=== PATIENT | male | born 1975 | race Caucasian/White ===

== ENCOUNTER 2016-06-25 17:53 | Observation (INO) ==
[2016-06-25 18:33] LABS: Bilirubin,Urine Negative (Negative); Blood,Urine Negative (Negative); Clarity,Urine Clear (Clear); Color,Urine Yellow (Yellow); Glucose,Urine (UA) >=1000 mg/dL (Normal); Ketones,Urine Trace mg/dL (Negative); Leukocyte Esterase,Urine Negative (Negative); Nitrite,Urine Negative (Negative); Protein,Urine 100 mg/dL (Neg-Trace); Specific Gravity,Urine > 1.030 (1.010-1.025); Urobilinogen,Urine Normal (Normal)
[2016-06-25 18:35] LABS: Bacteria,Urine None Seen per hpf (None-Few); Squamous Epithelial Cell,Urine Many per lpf (None-Few); WBC,Urine 0-3 per hpf (0-3)
[2016-06-25 18:54] LABS: Renal Epithelial Cells,Urine Few per hpf (None-Few)
[2016-06-25 18:55] LABS: Hyaline Casts,Urine Few per lpf (None-Few)
[2016-06-25 19:32] LABS: Basophils # 0.1 K/mcL (0.0-0.2); Basophils % 0.5 %; Eosinophils # 0.2 K/mcL (0.0-0.6); Eosinophils % 1.3 %; Hematocrit 47.2 % (37.5-50.1); Hemoglobin 17.8 g/dL (12.9-16.9); Immature Granulocytes % 1.1 % (0-4); Lymphocytes # 4.7 K/mcL (0.6-4.6); Lymphocytes % 39.5 %; Mean Corpuscular Hemoglobin 31.8 pg (28.0-33.3); Mean Corpuscular Volume 84.4 fL (83.0-100.0); Mean Platelet Volume 10.9 fL (9.4-12.4); Monocytes # 0.7 K/mcL (0.0-1.3); Monocytes % 5.6 %; Neutrophils # 6.2 K/mcL (1.6-8.9); Nucleated Red Blood Cells 0.6 /100 WBC (0); Platelet Count 227 K/mcL (140-400); Red Blood Count 5.59 M/mcL (4.19-5.50); Red Cell Distribution Width 14.1 % (11.5-14.5)
[2016-06-25 19:34] LABS: Mean Corpuscular HGB Conc 37.7 g/dL (31.6-35.5)
[2016-06-25] MEDS ORDERED: 0.9 % Sodium Chloride 1,000 ML IVC ONE ×2 (19:49→22:20)
[2016-06-25] MEDS ORDERED: Ipratropium/Albuterol Neb 3 ML IH ONE (20:30)
[2016-06-25] MEDS ORDERED: methylPREDNISolone 125 MG/2 ML VIAL IVP ONE (20:30)
--- NOTE | 2016-06-25 20:30 | Emergency Department Note ---
Disposition Clinical Impression: Dehydration, Hypoxia, Bronchitis COPD (chronic obstructive pulmonary disease) Qualifiers: COPD type: unspecified COPD Qualified Code(s): J44.9 - Chronic obstructive pulmonary disease, unspecified Disposition: Admitted As Inpatient Condition: Good Referrals: NO,PCP [Primary Care Provider] - Forms: Work/School Release, ED Satisfaction Letter Time of Disposition: 22:42 Abdominal Pain HPI - General Chief Complaint: ED Abdominal Pain Stated Complaint: abd pain Time Seen by Provider: 06/25/16 19:34 Source: patient Mode of arrival: ambulatory Limitations: no limitations Nursing Notes Reviewed: Yes Vital Signs Reviewed: Yes - History of Present Illness HPI Narrative: patient presents emergency room with cmplaint of burning in his lower abdomen. he also describes being seen last week for respiratory related issues. He does not feel like he is any better. He feels that his symptoms did not resolve after being treated. denies fevers chills nausea vomiting diarrhea chest pi headache or vision changes. He does have intermittent shortness of breath generalize malaise and lower abdominal burning sensation. Onset (ago): week(s) (1 week) Consistency: constant Pain Severity: moderate Pain Scale: 7 Radiation: none Migration to: no migration Improves with: nothing Worsens with: nothing Context: history of similar episodes Associated symptoms: Reports: fever, chills Treatments prior to arrival: none - Related Data Home Medications Medication Instructions Recorded Confirmed No Known Home Drugs 06/25/16 06/25/16 Allergies Allergy/AdvReac Type Severity Reaction Status Date / Time No Known Allergies Allergy Verified 06/25/16 18:16 All systems ED: reviewed and negative except as stated. Constitutional: Reports: fever, chills Cardiovascular: Reports: dyspnea on exertion, orthopnea. Denies: palpitations Respiratory: Reports: cough, dyspnea, wheezes, sputum production Gastrointestinal: Reports: abdominal pain. Denies: nausea, vomiting, diarrhea Genitourinary: Denies: dysuria Musculoskeletal: Denies: back pain, neck pain Neurological: Denies: headache Abdominal Pain PMH - Past Medical History Medical history: Reports: no medical history Male Surgical History: Reports: orthopedic, other Psychiatric history: Reports: no psych history - Social History Smoking status: Current every day smoker Alcohol use: Reports: rarely Drug use: Reports: none Physical Exam - General Limitations: no limitations General appearance: alert, in no apparent distress - Chest Chest inspection: Present: normal inspection - Respiratory Respiratory exam: Present: respiratory distress, wheezes, accessory muscle use. Absent: stridor - Cardiovascular Cardiovascular exam: Present: normal rhythm, tachycardia - Abdominal Exam Abdominal exam: Present: soft, Non-Tender, normal bowel sounds. Absent: tenderness, distention, guarding, rebound, rigidity, Mcmahan's sign, Rovsing's sign, tenderness at McBurney's Point - Extremities Exam Extremities exam: Present: normal inspection, full ROM. Absent: tenderness - Back Exam Back exam: Present: normal inspection - Neurological Exam Neurological exam: Present: alert, oriented X3, CN II-XII intact, normal gait Course Course Narrative: Patient's and examined the patient seen and examined some arrival. See history of present illness. 41-year-old male presents emergency room for repeat evaluation of increased work of breathing. Patient was seen here last week treated with antibiotics and steroids for home. He is persistently has shortness of breath at home. He is also generalized malaise and fevers. Patient back here today for similar presentation evaluation. Patient appears ill and first initial evaluation. He appears dehydrated as well as febrile. Temperature is been elevated at home according to him about 201. Antibiotics did not change his symptom presentation as well as the steroids. On physical exam head is atraumatic. Pupils are equal round reactive to light. Ocular muscles intact. Mucous membranes are dry. Oropharynx is patent. Trach is midline no meningeal symptoms. Lungs have coarse wheezing bilaterally on inspiration and expiration. No focal consolidation is auscultated at this time. Heart is regular initially tachycardic but stable after evaluation. Abdomen is soft nontender nondistended. Patient describes some burning sensation in lower abdomen there is no reproducible symptoms on exam. No burning with urination and no discharge from his penis at this time. No CVA tenderness. Patient moves all 4 extremities I difficulty. Patient says that he just feels wiped out and has been ill for over a week and a half. Physical exam is concerning for possible failed outpatient treatment along with undiagnosed COPD secondary to his chronic smoking history. Patient otherwise has no other medical conditions I think antibiotics are medications for. Patient had EKG chest x-ray and labs performed here. Breathing treatments ordered along with steroid bolus at this time. During the course to be completed and disposition pending workup. - Reevaluation(s) Reevaluation #1: Heart rate has been stable at 90-95 throughout the course of care. Repeat albuterol inhaler treatments given at this time secondary to increased wheezing after first DuoNeb nebs. Patient has what appears to be clinical COPD exacerbation secondary to smoking and weather changes. Patient has not shown signs of hypoxia but has been 93% on room air throughout the course of care. Patient still feels ill. Patient to have repeat treatment course and disposition determined. Labs are within normal limits chest x-ray does not show any acute pulmonary infiltrate. Time: 20:20 Reevaluation #2: Patient feels better breathing at this time but still feels ill and weak. Influenza swab is negative. Patient was ambulated around the emergency room and his pulse ox dropped to 90% and he felt dizzy at that time. Patient denies any other chest pain or symptoms at this point. Patient is concerning for outpatient treatment COPD exacerbation and hypoxia. Patient undergone the hospital for definitive management of what appears to be viral illness/ infectious etiology/COPD 5. Antibiotics fluid bolus and continue monitoring to be provided. Hospitals paged at this time for admission. Time: 22:28 Reevaluation #3: Patient discussed with the hospitalist Dr. Chambers. We reviewed the patient's presentation symptoms and failure of outpatient management. He will bring the patient in the hospital for further evaluation and management will appears to be undiagnosed COPD with reactive airway disease and poorly controlled bronchitis. Patient stable here now. Food provided for him prior to transfer to the floor. Vital signs of an stable throughout the course of care. Symptoms of uncontrolled breathing treatments and steroids. Continue to monitor as initial prosthesis is completed. First dose and about as given. Time: 00:26 Vital Signs Temperature 98.8 F 06/25/16 18:09 Pulse Rate 107 06/25/16 18:09 Respiratory Rate 18 06/25/16 18:09 Blood Pressure 153/97 06/25/16 18:09 O2 Sat by Pulse Oximetry 96 06/25/16 18:09 Temperature 98.8 F 06/25/16 18:09 Pulse Rate 103 06/25/16 23:43 Respiratory Rate 18 06/25/16 23:43 Blood Pressure 139/90 06/25/16 23:43 O2 Sat by Pulse Oximetry 96 06/25/16 23:43 Oxygen Delivery Oxygen Delivery Room Air Abdominal Pain - MDM Narrative Medical decision making narrative: COPD exacerbation, hypoxia, generalized weakness, - Medical Records Medical records reviewed: Yes I reviewed the patient's medical records. - Lab Data Lab results reviewed: Yes I reviewed the patient's lab results. Result diagrams: 06/25/16 19:10 06/25/16 21:30 Lab Results 06/25/16 06/25/16 06/25/16 Range/Units 18:23 19:10 19:51 WBC 11.9 H (4.3-11.1) K/mcL RBC 5.59 H (4.19-5.50) M/mcL Hgb 17.8 H (12.9-16.9) g/dL Hct 47.2 (37.5-50.1) % MCV 84.4 (83.0-100.0) fL MCH 31.8 (28.0-33.3) pg MCHC 37.7 H (31.6-35.5) g/dL RDW 14.1 (11.5-14.5) % Plt Count 227 (140-400) K/mcL MPV 10.9 (9.4-12.4) fL Immature Gran % 1.1 (0-4) % Seg Neutrophils % 52.0 % Lymphocytes % 39.5 % Monocytes % 5.6 % Eosinophils % 1.3 % Basophils % 0.5 % Neutrophils # 6.2 (1.6-8.9) K/mcL Lymphocytes # 4.7 H (0.6-4.6) K/mcL Monocytes # 0.7 (0.0-1.3) K/mcL Eosinophils # 0.2 (0.0-0.6) K/mcL Basophils # 0.1 (0.0-0.2) K/mcL Nucleated RBCs/100 WBC 0.6 H (0) /100 WBC Immature Plt Fraction 6.0 (1.1-6.1) % Sodium (136-145) mEq/L Potassium (3.5-4.5) mEq/L Chloride (98-109) mEq/L Carbon Dioxide (19-29) mEq/L BUN (8-26) mg/dL Creatinine (0.72-1.25) mg/dL Est GFR ( Amer) (> 60) Est GFR (Non-Af Amer) (> 60) BUN/Creatinine Ratio (6-26) Glucose (70-99) mg/dL Calculated Osmolality (280-300) Calcium (8.6-10.8) mg/dL Total Bilirubin (0.2-1.2) mg/dL Direct Bilirubin (0.0-0.5) mg/dL Indirect Bilirubin (0.0-1.2) mg/dL AST (5-34) Units/L ALT (0-55) Units/L Alkaline Phosphatase (38-126) Units/L Serum Total Protein (6.0-8.3) g/dL Albumin (3.5-5.0) g/dL Globulin (2.4-3.5) g/dL Albumin/Globulin Ratio (1.1-2.2) Amylase (25-125) Units/L Lipase (8-78) Units/L Urine Color Yellow (Yellow) Urine Clarity Clear (Clear) Urine pH 6.0 (5.0-8.0) pH Units Ur Specific [place] > 1.030 H (1.010-1.025) Urine Protein 100 H (Neg-Trace) mg/dL Urine Glucose (UA) >=1000 H (Normal) mg/dL Urine Ketones Trace H (Negative) mg/dL Urine Blood Negative (Negative) Urine Nitrite Negative (Negative) Urine Bilirubin Negative (Negative) Urine Urobilinogen Normal (Normal) mg/dL Ur Leukocyte Esterase Negative (Negative) Urine Microscopic RBC 5-15 H (0-3) per hpf Urine Microscopic WBC 0-3 (0-3) per hpf Ur Squamous Epith Cells Many H (None-Few) per lpf Ur Renal Epithelial Cell Few (None-Few) per hpf Urine Bacteria None Seen (None-Few) per hpf Hyaline Casts Few (None-Few) per lpf Ur Culture Indicated? NO (NO) Specimen Rejected Hemolyzed 06/25/16 Range/Units 21:30 WBC (4.3-11.1) K/mcL RBC (4.19-5.50) M/mcL Hgb (12.9-16.9) g/dL Hct (37.5-50.1) % MCV (83.0-100.0) fL MCH (28.0-33.3) pg MCHC (31.6-35.5) g/dL RDW (11.5-14.5) % Plt Count (140-400) K/mcL MPV (9.4-12.4) fL Immature Gran % (0-4) % Seg Neutrophils % % Lymphocytes % % Monocytes % % Eosinophils % % Basophils % % Neutrophils # (1.6-8.9) K/mcL Lymphocytes # (0.6-4.6) K/mcL Monocytes # (0.0-1.3) K/mcL Eosinophils # (0.0-0.6) K/mcL Basophils # (0.0-0.2) K/mcL Nucleated RBCs/100 WBC (0) /100 WBC Immature Plt Fraction (1.1-6.1) % Sodium 136 (136-145) mEq/L Potassium 5.9 H (3.5-4.5) mEq/L Chloride 106 (98-109) mEq/L Carbon Dioxide 20 (19-29) mEq/L BUN 7 L (8-26) mg/dL Creatinine 0.74 (0.72-1.25) mg/dL Est GFR ( Amer) > 60 (> 60) Est GFR (Non-Af Amer) > 60 (> 60) BUN/Creatinine Ratio 9 (6-26) Glucose 211 H (70-99) mg/dL Calculated Osmolality 286 (280-300) Calcium 7.9 L (8.6-10.8) mg/dL Total Bilirubin 0.2 (0.2-1.2) mg/dL Direct Bilirubin < 0.1 (0.0-0.5) mg/dL Indirect Bilirubin 0.1 (0.0-1.2) mg/dL AST 49 H (5-34) Units/L ALT 24 (0-55) Units/L Alkaline Phosphatase 82 (38-126) Units/L Serum Total Protein 7.2 (6.0-8.3) g/dL Albumin 3.1 L (3.5-5.0) g/dL Globulin 4.1 H (2.4-3.5) g/dL Albumin/Globulin Ratio 0.8 L (1.1-2.2) Amylase 5 L (25-125) Units/L Lipase 30 (8-78) Units/L Urine Color (Yellow) Urine Clarity (Clear) Urine pH (5.0-8.0) pH Units Ur Specific [place] (1.010-1.025) Urine Protein (Neg-Trace) mg/dL Urine Glucose (UA) (Normal) mg/dL Urine Ketones (Negative) mg/dL Urine Blood (Negative) Urine Nitrite (Negative) Urine Bilirubin (Negative) Urine Urobilinogen (Normal) mg/dL Ur Leukocyte Esterase (Negative) Urine Microscopic RBC (0-3) per hpf Urine Microscopic WBC (0-3) per hpf Ur Squamous Epith Cells (None-Few) per lpf Ur Renal Epithelial Cell (None-Few) per hpf Urine Bacteria (None-Few) per hpf Hyaline Casts (None-Few) per lpf Ur Culture Indicated? (NO) Specimen Rejected - Radiology Data Radiology results reviewed: Yes I reviewed the patient's radiology results. Chest x-ray stable for acute pathology - EKG Data EKG attestation: Yes I reviewed and interpreted this EKG. EKG shows normal: sinus rhythm, axis, intervals, QRS complexes, ST-T waves Rate: normal Rhythm: NSR [place]/QRS: normal When compared to previous EKG there are: no significant changes Interpretation: no acute changes, unchanged when compared to prior tracing (date ) (05/14/07) Critical Care Time Critical Care Time: Yes Total Critical Care Time: 35 Attestation: Independent of procedures and medical intervention.
[2016-06-25] MEDS ORDERED: Albuterol 2.5 MG/3 ML NEBULIZER IH ONE (21:08)
--- NOTE | 2016-06-25 21:10 | Emergency Department Note ---
START Narrative - START START: I examined this patient and my medical decision-making was reviewed with the CONFORMAL PAD FORMER/PA/Advanced Practice Nurse/Resident Physician. I agree with the documented findings, disposition and treatment plan as described except to the extent set forth below. ED attending note: Patient seen with emergency medicine resident Dr. Somers. Please see a copy of his note for details of the H&P, evaluation, management and disposition of this patient. We independently had [id number] contact with the patient Briefly: A 11-year-old male treated for "bronchitis" several days ago in the ED. Comes in with abdominal burning and shortness of breath. He is expiratory wheezing at least a pack per day smoker. Chest x-ray shows no acute process per radiology. Patient getting breathing treatments and labs. Disposition pending. Patient stable. Abdomen surgically benign.
[2016-06-25 21:50] LABS: Blood Urea Nitrogen 7 mg/dL (8-26); Carbon Dioxide 20 mEq/L (19-29); Chloride 106 mEq/L (98-109); Potassium 5.9 mEq/L (3.5-4.5); Sodium 136 mEq/L (136-145)
[2016-06-25 21:51] LABS: Alkaline Phosphatase 82 Units/L (38-126); BUN/Creatinine Ratio 9 (6-26); Bilirubin,Direct < 0.1 mg/dL (0.0-0.5); Bilirubin,Indirect 0.1 mg/dL (0.0-1.2); Bilirubin,Total 0.2 mg/dL (0.2-1.2); Calcium 7.9 mg/dL (8.6-10.8); Glucose 211 mg/dL (70-99); Osmolality,Calculated 286 (280-300); eGFR For African Americans > 60 (> 60); eGFR For Non-African Americans > 60 (> 60)
[2016-06-25 21:52] LABS: Alanine Aminotransferase 24 Units/L (0-55); Albumin 3.1 g/dL (3.5-5.0); Albumin/Globulin Ratio 0.8 (1.1-2.2); Amylase 5 Units/L (25-125); Aspartate Amino Transferase 49 Units/L (5-34); Globulin 4.1 g/dL (2.4-3.5); Lipase 30 Units/L (8-78); Total Protein 7.2 g/dL (6.0-8.3)
[2016-06-25] MEDS ORDERED: levoFLOXacin 500 MG TABLET PO ONE (22:19)
[2016-06-26] MEDS ORDERED: Acetaminophen 325 MG TABLET PO PRN (01:45)
[2016-06-26] MEDS ORDERED: *HR* Promethazine 25 MG/ML VIAL IVP PRN (01:45)
[2016-06-26] MEDS ORDERED: *HR* Dextrose 50 % in Water (Syg) 50 ML SYRINGE IVP PRN (01:49)
[2016-06-26] MEDS ORDERED: D5% in Water 1,000 ML IVC PRN (01:49)
[2016-06-26] MEDS ORDERED: Dextrose Gel 15 GM PO PRN ×2 (01:49)
[2016-06-26] MEDS ORDERED: Albuterol 2.5 MG/3 ML NEBULIZER IH PRN (01:52)
[2016-06-26] MEDS ORDERED: Nicotine 21 MG PATCH.TD24 TD PRN (01:58)
--- NOTE | 2016-06-26 02:38 | Internal Med History&Physical ---
<Michelle Zendejas Hortencia - Last Filed: 06/26/16 02:22> Date of Encounter: 06/26/16 Time of Encounter: 02:24 Assessment and Plan (1) COPD (chronic obstructive pulmonary disease) Current visit: Yes Status: Suspected suspected due 1-2ppd x24yr smoking history hypoxia on presentation failed outpt abx treatmtn IV levaquin steriods bronchodilators nicotine patch prn recommend smoking cessation pulm consult, PFT as outpt supportive care Qualifiers: COPD type: unspecified COPD Qualified Code(s): J44.9 - Chronic obstructive pulmonary disease, unspecified (2) Polycythemia Current visit: Yes Status: Acute Hb 17.5/Hct 47.2 MCV 84.4 likely etiology smoking vs dehydration unlikely polycythemia vera or hereditary IVF supplemental O2 prn trend labs (3) Increased blood glucose Current visit: Yes Status: Acute family history suggestive of DM glucose 211 check A1C recheck glucose diabetic diet sliding scale (4) Hyperkalemia Current visit: Yes Status: Acute hemolyzed will recheck K (5) Leukocytosis Current visit: Yes Status: Acute WBC 11.9 abx repeat labs (6) Dehydration Current visit: Yes Status: Acute IVF bolus maintenance fluids (7) Hypoxia Current visit: Yes Status: Acute supplemental O2 prn Internal Medicine - H&P: HPI Chief complaint: SOB Admitted From: Home Plans for Post Hospital Care: Home History of present illness: Mr. Ayala is a 41 year old male with c/o SOB PMHx tobacco abuse and heavy caffeine use. Pt c/o dyspnea on exertion since last week. Pt states he has been getting very SOB with productive cough and wheezing since last tuesday. He came to the ER last tuesday for symptoms and was treated with a Zpack. Pt completed medication with no improvement, but worsening of his symptoms. Increased severity of dyspnea has been causing him to get lightheaded and become hypoxic with short distance walking. He is also starting to have pain and discomfort with deep breaths and coughing. He also states he has been having some intermittent burning stomach irritation. He is not sure if it is related to meals and has not tried anything to improve it. Pt denies fever,chills, hemoptysis, myalgia, N/V/D, change in urinary or bowel habits. Past Med Surg Social Fam HX - Past Medical History Medical history: no medical history Psychiatric history: no psych history - Social History Smoking Status: Current every day smoker Packs per day: 1.5ppd x24yrs Smokeless Tobacco Status: No Alcohol use: rarely Drug use: none Occupational status: employed Current living situation: Home Activity Level: Independent ambulation - Family History Paternal Grandmother Hx Family Cardiac Disorders: No Hx Family Respiratory Disorders: Yes (COPD) Hx Family Cancer: No Hx Family GI Disorders: No Hx Family Genitourinary Disorders: No Hx Family Endocrine Disorder: Yes (DM) Hx Family Musculoskeletal Disorders: No Hx Family Neuromuscular Disorders: No Hx Family Neurologic Disorders: No Hx Family HEENT Disorders: No Hx Family Autoimmune Disorders: No Hx Family Reproductive Disorders: No Hx Family Psychosocial Disorders: No Hx Family Medical Disorders: No Father Hx Family Cardiac Disorders: No Hx Family Respiratory Disorders: No Hx Family Cancer: No Hx Family GI Disorders: No Hx Family Genitourinary Disorders: No Hx Family Endocrine Disorder: Yes (DM) Hx Family Musculoskeletal Disorders: No Hx Family Neuromuscular Disorders: No Hx Family Neurologic Disorders: No Hx Family HEENT Disorders: No Hx Family Autoimmune Disorders: No Hx Family Reproductive Disorders: No Hx Family Psychosocial Disorders: No Hx Family Medical Disorders: No Mother Hx Family Endocrine Disorder: Yes (DM) Daughter Hx Family Endocrine Disorder: Yes (DM) Internal Medicine - H&P: Meds No Known Home Drugs 06/25/16 [History] Allergies No Known Allergies Allergy (Verified 06/25/16 18:16) All Systems PM: A 10-system review of systems was performed and is negative for pertinent findings except as documented above in the HPI. - Constitutional Constitutional: no chills, no fever(s), no night sweats - EENT Eyes: no change in vision, no discharge, no pain, no photophobia - Cardiovascular Cardiovascular ROS IM: no chest pain, no diaphoresis, no dyspnea, no lightheadedness, no palpitations, no syncope - Respiratory Respiratory: cough, dyspnea, dyspnea on exertion, wheezing, pain on inspiration , chest congestion, excessive phlegm production, change in phlegm color, pain with cough, no hemoptysis, no stridor - Gastrointestinal Gastrointestinal: belching, heartburn, no coffee ground emesis, no constipation , no diarrhea, no nausea, no vomiting - Genitourinary Genitourinary ROS male: no dysuria, no hematuria, no penile discharge - Musculoskeletal Musculoskeletal ROS IM: no numbness, no tingling - Integumentary Integumentary IM: no rash, no unusual bruising - Neurological Neurological ROS: dizziness, no confusion, no convulsions, no focal weakness, no numbness, no tingling, no tremor(s) - Constitutional Vitals: Temp Pulse Resp BP Pulse Ox 98.2 F 102 16 159/90 96 06/26/16 01:28 06/26/16 01:28 06/26/16 01:28 06/26/16 01:28 06/26/16 01:28 General appearance: Present: A&O X 3, pleasant, no acute distress, obese, answers questions appropriately - Head Head exam: Present: atraumatic, normocephalic - Eye Eye exam: Present: EOMI, PERRL, conjuntiva pink, sclera anicteric Pupils: Present: PERRL - ENT ENT exam: Present: mucous membranes dry - Neck Neck exam general surgery: Present: supple, trachea midline. Absent: lymphadenopathy - Respiratory Respiratory exam: Present: decreased breath sounds, wheezes. Absent: accessory muscle use, chest wall tenderness, respiratory distress, tachypnea - Expanded Respiratory Exam Location: decreased breath sounds: Left, Right, wheezes: Left, Right, Lower - Cardiovascular Cardiovascular exam: Present: RRR, +S1, +S2. Absent: diastolic murmur, gallop, rubs, systolic murmur - GI/Abdominal GI/Abdominal exam: Present: normal bowel sounds, soft (protuberant), no peritoneal signs. Absent: distended, tenderness - Extremities Exam Extremities exam: Present: warm, radial pulses palpable and symetrical. Absent : calf tenderness, cyanotic, pedal edema - Back Exam Back exam: Absent: CVA tenderness (L), CVA tenderness (R) - Neurological Exam Neurological exam: Present: CN II-XII intact, oriented X3, no focal deficits. Absent: pronater drift, facial droop, speech deficit - Skin Skin exam: Present: diaphoretic. Absent: cyanosis, rash Internal Med - H&P Results - Labs CBC & Chem 7: 06/25/16 19:10 06/25/16 21:30 <Javier Chamebrs - Last Filed: 06/26/16 04:53> Internal Medicine - H&P: HPI History of present illness: Mr. Ayala is a 41 year old male All Systems PM: A 10-system review of systems was performed and is negative for pertinent findings except as documented above in the HPI. - Constitutional Vitals: Temp Pulse Resp BP Pulse Ox 98.2 F 102 16 159/90 96 06/26/16 01:28 06/26/16 01:28 06/26/16 01:28 06/26/16 01:28 06/26/16 01:28 Internal Med - H&P Results - Labs CBC & Chem 7: 06/26/16 03:32 06/25/16 21:30 Labs: Short CBC 06/26/16 Range/Units 03:32 WBC 10.4 (4.3-11.1) K/mcL Hgb 16.3 D (12.9-16.9) g/dL Hct 44.3 (37.5-50.1) % Plt Count 171 (140-400) K/mcL - Attending Attestation I examined this patient and my medical decision-making was reviewed with the OTOLARYNGOLOGY NURSE/PA/Advanced Practice Nurse/Resident Physician. I agree with the documented findings, disposition and treatment plan as described except to the extent set forth below. Agree with Dr. Zendejas, and failed outpatient therapy , continue with systemic steroids and antibiotics. Continue with nebulizer therapy.
[2016-06-26 04:05] LABS: Hematocrit 44.3 % (37.5-50.1); Mean Corpuscular HGB Conc 36.8 g/dL (31.6-35.5); Mean Corpuscular Hemoglobin 30.8 pg (28.0-33.3); Mean Corpuscular Volume 83.7 fL (83.0-100.0); Mean Platelet Volume 10.3 fL (9.4-12.4); Platelet Count 171 K/mcL (140-400); Red Blood Count 5.29 M/mcL (4.19-5.50); Red Cell Distribution Width 12.8 % (11.5-14.5)
[2016-06-26 04:06] LABS: Hemoglobin 16.3 g/dL (12.9-16.9)
[2016-06-26] MEDS: 0.9 % Sodium Chloride 1,000 ML IVC SCH ×3 (04:09→20:44)
[2016-06-26 04:17] LABS: Hemoglobin A1C 8.5 %
[2016-06-26 04:44] LABS: eGFR For African Americans > 60 (> 60); eGFR For Non-African Americans > 60 (> 60)
[2016-06-26] MEDS: Ipratropium/Albuterol Neb 3 ML IH SCH ×6 (04:46→23:00)
[2016-06-26 04:50] LABS: Blood Urea Nitrogen 8 mg/dL (8-26); Carbon Dioxide 20 mEq/L (19-29); Chloride 106 mEq/L (98-109); Potassium 5.4 mEq/L (3.5-4.5); Sodium 134 mEq/L (136-145)
[2016-06-26 04:51] LABS: Calcium 8.2 mg/dL (8.6-10.8); Cholesterol 49 mg/dL (< 200); Glucose 323 mg/dL (70-99); Triglycerides 152 mg/dL (< 150)
[2016-06-26 04:53] LABS: HDL Cholesterol 20 mg/dL (40-59)
[2016-06-26 04:54] LABS: BUN/Creatinine Ratio 12 (6-26); Osmolality,Calculated 347 (280-300)
[2016-06-26 04:55] LABS: LDL Cholesterol,Calculated 2 mg/dL (0-99)
[2016-06-26] MEDS ORDERED: Insulin LISPRO 300 UNITS/3 ML VIAL SQ SCH ×2 (06:00→21:00)
[2016-06-26] MEDS: methylPREDNISolone 125 MG/2 ML VIAL IVP SCH ×3 (06:07→20:44)
[2016-06-26] MEDS: Insulin LISPRO 300 UNITS/3 ML VIAL SQ SCH ×3 (08:28→17:45)
[2016-06-26] MEDS: Pantoprazole 40 MG VIAL IVP SCH (08:29)
[2016-06-26] MEDS ORDERED: Ipratropium/Albuterol Neb 3 ML IH PRN (10:14)
[2016-06-26] MEDS ORDERED: *HR* HYDROcodone/Acet 5/325 mg TABLET PO PRN (10:46)
--- NOTE | 2016-06-26 10:47 | Event Note ---
Date of Encounter: 06/26/16 Time of Encounter: 09:15 Patient seen and examined. On examination, patient is sitting upright in bed conversing with his . He complains of a persistent, nonproductive cough. He states he is much more short of breath than usual and states this is been going on for at least a week or so. Chest x-ray negative. Continue levofloxacin. Urinalysis negative. A1c 8.5% leading to a new diagnosis of diabetes. We will treat him with insulin sliding scale per protocol during this admission and start him on oral diabetes medications upon disposition. environmental educator on board and will see him if he is still here on Tuesday, continuing education of diabetes per nursing and hospitalist staff. Patient stating his , children, and most of his family are also diabetic. He continues to smoke 1-1/2 packs per day but states he is actively trying to quit. He declines nicotine replacement therapy at this time. On examination, aeration is poor. We will increase DuoNeb every 4 hours and add mucolytic's. He is already on steroids. He failed outpatient therapy with [facility]-Abhis[facility]. Hypertension and tachycardia noted, will initiate metoprolol. Patient likely has underlying hypertension however he has not seen a provider in several years. He is requesting for a primary care provider here at [facility]. Mild leukocytosis has resolved. Hyperkalemia trending down however suspect false lab reports given that both of these samples were hemolyzed and likely inaccurate. We will recheck labs in the morning. We will continue to monitor. ITS Impressions Chest X-Ray 06/25/16 19:49 IMPRESSION: No acute cardiopulmonary disease D/ / Ralf Valdovinos MD / Ralf Valdovinos MD Interpreting Provider: Ralf Valdovinos MD
[2016-06-26] MEDS ORDERED: Levofloxacin 500 MG/100 ML 500 MG/100 ML BAG IVPB SCH (22:00)
[2016-06-27] MEDS: Ipratropium/Albuterol Neb 3 ML IH SCH ×3 (04:23→11:08)
[2016-06-27] MEDS: methylPREDNISolone 125 MG/2 ML VIAL IVP SCH (05:34)
[2016-06-27] MEDS: 0.9 % Sodium Chloride 1,000 ML IVC SCH (05:35)
[2016-06-27 07:04] LABS: BUN/Creatinine Ratio 17 (6-26); Blood Urea Nitrogen 13 mg/dL (8-26); Calcium 8.9 mg/dL (8.6-10.8); Carbon Dioxide 13 mEq/L (19-29); Chloride 107 mEq/L (98-109); Glucose 350 mg/dL (70-99); Osmolality,Calculated 294 (280-300); Potassium 5.1 mEq/L (3.5-4.5); Sodium 135 mEq/L (136-145); eGFR For African Americans > 60 (> 60); eGFR For Non-African Americans > 60 (> 60)
[2016-06-27] MEDS: Pantoprazole 40 MG VIAL IVP SCH (08:52)
[2016-06-27] MEDS: Insulin LISPRO 300 UNITS/3 ML VIAL SQ SCH ×2 (08:52→12:21)
[2016-06-27 10:54] VITALS: BP 133/73
--- NOTE | 2016-06-27 11:39 | Discharge Summary ---
Date of Encounter: 06/27/16 Time of Encounter: 11:00 - Discharge Diagnosis (1) COPD (chronic obstructive pulmonary disease) Priority: Primary Status: Suspected Comments: History of heavy tobacco abuse 1.5 packs per day. He did not want to discuss stopping smoking. He denied shortness of breath above his normal day of discharge. He is not on controller medications, will initiate Symbicort, albuterol, and send on prednisone taper and finish Levaquin dose (2) Bronchitis Priority: Primary Status: Acute (3) Newly diagnosed diabetes Priority: Primary Status: Acute Comments: A1c 8.5%. He was started on metformin and education was given. Of note, several family members are also diabetic (4) Dehydration Priority: Primary Status: Resolved (5) Hypoxia Priority: Primary Status: Resolved Comments: Tolerated room air while admitted (6) Polycythemia Priority: Primary Status: Resolved Comments: Resolved with IV fluids, likely secondary to dehydration (7) Hyperkalemia Priority: Primary Status: Acute Comments: Remained stable and trended down during this admission as his glucoses were better controlled (8) Leukocytosis Priority: Primary Status: Resolved - Discharge Medications Prescriptions: Albuterol Sulfate [Albuterol Inhaler] 2 puff IH Q4HR PRN #1 hfa.aer.ad PRN Reason: Shortness Of Breath Budesonide/Formoterol 160/4.5 [Symbicort 160/4.5] 2 puff IH BIDR #1 hfa.aer.ad Guaifenesin [Guaifenesin ER] 1,200 mg PO BID #14 tab.er.12h Levofloxacin [Levaquin] 750 mg PO DAILY #5 tablet Metformin [Glucophage] 500 mg PO BIDWM #60 tablet Metoprolol [Lopressor] 25 mg PO BID #60 tablet PredniSONE 10 mg PO DAILY #41 tablet Home Medications: Albuterol Sulfate [Albuterol Inhaler] 2 puff IH Q4HR PRN #1 hfa.aer.ad 06/27/16 [Rx] Budesonide/Formoterol 160/4.5 [Symbicort 160/4.5] 2 puff IH BIDR #1 hfa.aer.ad 06/27/16 [Rx] Guaifenesin [Guaifenesin ER] 1,200 mg PO BID #14 tab.er.12h 06/27/16 [Rx] Levofloxacin [Levaquin] 750 mg PO DAILY #5 tablet 06/27/16 [Rx] Metformin [Glucophage] 500 mg PO BIDWM #60 tablet 06/27/16 [Rx] Metoprolol [Lopressor] 25 mg PO BID #60 tablet 06/27/16 [Rx] PredniSONE 10 mg PO DAILY #41 tablet 06/27/16 [Rx] Allergies/Adverse Reactions: Allergies No Known Allergies Allergy (Verified 06/25/16 18:16) Date of admission: 06/26/16 00:29 Primary care physician: PCP NO Consults: 06/26/16 01:49 Consult to Legal Director [CONS] Routine Comment: Discharging clinician: Fiorella Roldan Anticipated date of discharge: 06/27/16 - Patient Status Disposition: Home, Self-Care Condition: Fair Functional capacity at discharge: independent ambulation Overall status at discharge: patient is back to baseline - Discharge Instructions Follow Up With: Clinic, Residency [Other] Additional Instructions: Follow-up with your new primary care provider within one to 2 weeks - Diet and Activity Activity: increase activity as tolerated Diet: diabetic diet, low fat, low cholesterol, low salt diet Hospital course: Mr. Ayala is a 41 year old male with past medical history of heavy tobacco use 1.5 packs per day 24 years and heavy caffeine abuse. Patient presented to the emergency department chief complaint dyspnea on exertion 1 week. Patient also endorsing extreme shortness of breath and a productive cough with wheezing. Patient was seen in the emergency department last week prior to presentation and was treated with a Z-Abhishek and discharged. Patient stating he completed this medication without improvement and states his symptoms had worsened prompting his presentation back to the emergency department. Patient stating the severity of his dyspnea has caused him to be lightheaded and to become hypoxic with short distances of walking. Patient also endorsed pain with deep breathing and coughing and he also complained of intermittent burning and stomach irritation. Workup in the emergency department unremarkable except for initial hypertension. Patient was admitted to the hospitalist service for further evaluation and management. Chest x-ray negative. Given his lengthy smoking history, he was treated for COPD exacerbation with suspected new diagnosis of COPD. Of note, patient does not see a primary care provider and is not on any home medications. He was started on metoprolol for his hypertension and tachycardia and his blood pressure was normotensive at day of discharge. He was treated with bronchodilators, steroids, and mucolytic's and his aeration improved. He tolerated room air while admitted. Urinalysis was negative. His glucoses were elevated and an A1c of 8.5% LAD to a new diagnosis of diabetes and the patient was educated and started on metformin. He was also started on controller medications for his suspected COPD with Symbicort and albuterol. Attempted smoking cessation counseling however the patient declined. According to [facility], he has not seen a provider since 2013. He was set up with a new PCP upon discharge and strongly encouraged to keep appointment. He denied shortness of breath above his normal day of discharge though his aeration remained poor which I suspect is consistent with his baseline. He was discharged home in stable condition with close outpatient follow-up highly recommended. ITS Impressions Chest X-Ray 06/25/16 19:49 IMPRESSION: No acute cardiopulmonary disease D/ / Ralf Valdovinos MD / Ralf Valdovinos MD Interpreting Provider: Ralf Valdovinos MD Time spent discussing smoking cessation with patient: 3 to 10 minutes - Time Spent with Patient Total time spent providing and/or coordinating discharge services: - Constitutional Vitals: Temp Pulse Resp BP Pulse Ox 97.8 F 74 17 133/73 97 06/27/16 10:52 06/27/16 10:52 06/27/16 10:52 06/27/16 10:52 06/27/16 10:52 General appearance: Present: A&O X 3, pleasant, no acute distress, obese, answers questions appropriately - Head Head exam: Present: atraumatic, normocephalic - Eye Eye exam: Present: PERRL, conjuntiva pink, sclera anicteric Pupils: Present: PERRL - Neck Neck exam general surgery: Present: supple, trachea midline. Absent: lymphadenopathy - Respiratory Respiratory exam: Present: decreased breath sounds, prolonged expiratory phase, wheezes. Absent: accessory muscle use, rales, respiratory distress, rhonchi - Cardiovascular Cardiovascular exam: Present: RRR, +S1, +S2. Absent: diastolic murmur, gallop, rubs, systolic murmur - GI/Abdominal GI/Abdominal exam: Present: normal bowel sounds, soft, no peritoneal signs. Absent: distended, tenderness - Extremities Exam Extremities exam: Present: warm, radial pulses palpable and symetrical. Absent : calf tenderness, cyanotic, pedal edema - Neurological Exam Neurological exam: Present: alert, CN II-XII intact, normal gait, oriented X3, no focal deficits, strengths equal and symetr throughout. Absent: pronater drift, facial droop, speech deficit - Skin Skin exam: Present: dry, intact, normal color, warm
--- NOTE | 2016-06-27 21:50 | Electrocardiograph Report ---
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
== END 2016-06-27 12:58 | disposition home or self-care (01) ==
LOC: 3BNU 17:53 → EMEROO 17:53 → 3BNU 06-26 00:46
PROVIDERS: ADMIT Internal Medicine; ATTEND Nurse Practitioner Family

== ENCOUNTER 2018-07-10 13:39 | Observation (INO) ==
[2018-07-10] MEDS ORDERED: Aspirin 81 MG TAB.CHEW PO ONE (14:05)
--- NOTE | 2018-07-10 14:10 | Emergency Department Note ---
Disposition Clinical Impression: Chest pain Qualifiers: Chest pain type: unspecified Qualified Code(s): R07.9 - Chest pain, unspecified Disposition: Still a Patient Condition: Good Referrals: NONE,PCP [Primary Care Provider] - Forms: ED Satisfaction Letter Time of Disposition: 15:53 Chest Pain HPI - General Chief Complaint: ED Chest Pain Stated Complaint: CP/SOB Time Seen by Provider: 07/10/18 13:56 Source: patient Limitations: no limitations Vital Signs Reviewed: Yes Nursing Notes Reviewed: Yes - History of Present Illness HPI Narrative: 43-year-old male presents from home with bedside for evaluation of right- sided chest pain. Described as a heaviness. Onset yesterday and intermittent. Last approximate 1 hour before spontaneously resolving. Worse with exertion. Improved with rest. Nonradiating. Associated with dyspnea, diaphoresis, and nausea. Patient also has a cough for the past week and progressive orthopnea such that he now is unable to lay flat without becoming extremely short of breath. PMH: COPD, hypertension, diabetes type 2 Family history: Mother had a ACS of the age of 48. Habits: Currently everyday one pack per day smoker. ROS: Positive: Chest pain, dyspnea, diaphoresis, nausea, orthopnea Negative: Fever, chills, vomiting, palpitations, abdominal pain, diarrhea, constipation, dysuria Severity scale (1-10): 8 - Related Data Previous Rx's Medication Instructions Recorded Albuterol Sulfate [Albuterol 2 puff IH Q4HR PRN #1 hfa.aer.ad 06/27/16 Inhaler] Budesonide/Formoterol 160/4.5 2 puff IH BIDR #1 hfa.aer.ad 06/27/16 [Symbicort 160/4.5] Guaifenesin [Guaifenesin ER] 1,200 mg PO BID #14 tab.er.12h 06/27/16 Levofloxacin [Levaquin] 750 mg PO DAILY #5 tablet 06/27/16 Metoprolol [Lopressor] 25 mg PO BID #60 tablet 06/27/16 metFORMIN [Glucophage] 500 mg PO BIDWM #60 tablet 06/27/16 predniSONE [PredniSONE] 10 mg PO DAILY #41 tablet 06/27/16 HYDROcodone/Acet 5/325 mg [[place] 1 tab PO Q6H PRN #20 tab 11/19/16 5-325 mg] Ondansetron [Zofran] 8 mg PO Q8HR PRN #10 tablet 11/19/16 Allergies Allergy/AdvReac Type Severity Reaction Status Date / Time No Known Allergies Allergy Verified 11/19/16 16:26 All systems ED: reviewed and negative except as stated. Review of Systems: As Per HPI Chest Pain PMH - Past Medical History Medical history: Reports: COPD, diabetes, hyperlipidemia, hypertension Psychiatric history: Reports: no psych history - Social History Smoking Status: Current every day smoker Alcohol use: Reports: rarely Drug use: Reports: none Physical Exam Vital Signs Reviewed General: Patient is alert, oriented, and in no acute distress. Head: atraumatic, normocephalic Eye: normal appearance, PERRL, EOMI, no scleral icterus, no conjunctival injection ENT: mucous membranes moist, normal external ear exam Neck: normal inspection, trachea midline, full ROM Chest: normal inspection, symmetric chest rise Respiratory: Good respiratory effort. Bilateral breath sounds are clear without wheezing, crackles, or rhonchi. Cardiovascular: Regular rate and rhythm. No clicks, rubs, gallops, or murmors. Normal heart sounds. No pedal edema. Bilateral radial pulses 2/4 equal. Abdomen: Bowel sounds present normoactive. Abdomen is soft, nondistended, and n ontender. No guarding or rebound. No organomegaly noted. Musculoskeletal: Spontaneously moving all extremities. Skin: warm, diaphoretic, intact. Neuro: GCS 15. No focal neurologic deficits observed. Psych: Patient's affect is appropriate for situation. - General Limitations: no limitations General appearance: alert, in no apparent distress Course Course Narrative: EKG dated 07/10/2018 at 13:59 interpreted as sinus rhythm with a rate of 87.CA 157, QRS 87, QTC 43.normal axis. Nonspecific ST-T changes. Compared to previous EKG dated 06/25/16 shows no acute ischemic changes. Patient's pain completely resolved with SL nitro x3. Serum hematology is unremarkable. Serum chemistry is unremarkable. Troponin within normal limits. CXR is unremarkable. Given patient's concerning story, risk factors including family history he is agreeable to admission for continued evaluation. Discussed the above with the admitting hospitalist, Dr. Hernandez, who agrees to accept the patient for chest pain. Vital Signs Temperature 98.4 F 07/10/18 13:57 Pulse Rate 87 07/10/18 13:57 Respiratory Rate 16 07/10/18 13:57 Blood Pressure 177/90 07/10/18 13:57 O2 Sat by Pulse Oximetry 97 07/10/18 13:57 Temperature 98.4 F 07/10/18 13:57 Pulse Rate 95 07/10/18 14:35 Respiratory Rate 16 07/10/18 14:35 Blood Pressure 144/75 07/10/18 14:35 O2 Sat by Pulse Oximetry 96 07/10/18 14:35 Oxygen Delivery Oxygen Delivery Room Air Chest Pain - Lab Data Result diagrams: 07/10/18 14:15 07/10/18 14:15 Lab Results 07/10/18 07/10/18 07/10/18 Range/Units 14:05 14:06 14:15 WBC 6.8 (4.3-11.1) K/mcL RBC 5.00 (4.19-5.50) M/mcL Hgb 15.0 (12.9-16.9) g/dL Hct 43.7 (37.5-50.1) % MCV 87.4 (83.0-100.0) fL MCH 30.0 (28.0-33.3) pg MCHC 34.3 (31.6-35.5) g/dL RDW 12.7 (11.5-14.5) % Plt Count 165 (140-400) K/mcL MPV 9.9 (9.4-12.4) fL Immature Gran % 0.3 (0-4) % Seg Neutrophils % 62.1 % Lymphocytes % 23.1 % Monocytes % 12.9 % Eosinophils % 0.9 % Basophils % 0.7 % Neutrophils # 4.3 (1.6-8.9) K/mcL Lymphocytes # 1.6 (0.6-4.6) K/mcL Monocytes # 0.9 (0.0-1.3) K/mcL Eosinophils # 0.1 (0.0-0.6) K/mcL Basophils # 0.1 (0.0-0.2) K/mcL PT 11.0 (9.4-12.1) Seconds INR 1.0 APTT 28.7 (26.0-36.0) Seconds Sodium (136-145) mEq/L Potassium (3.5-5.1) mEq/L Chloride (98-107) mEq/L Carbon Dioxide (23-29) mEq/L BUN (6-20) mg/dL Creatinine (0.70-1.30) mg/dL Est GFR ( Amer) (> 60) Est GFR (Non-Af Amer) (> 60) BUN/Creatinine Ratio (6-26) Glucose (70-105) mg/dL Calculated Osmolality (280-300) Calcium (8.6-10.3) mg/dL Troponin I (< 0.04) ng/mL B-Natriuretic Peptide 12 (Less than 100) pg/mL 07/10/18 Range/Units 14:15 WBC (4.3-11.1) K/mcL RBC (4.19-5.50) M/mcL Hgb (12.9-16.9) g/dL Hct (37.5-50.1) % MCV (83.0-100.0) fL MCH (28.0-33.3) pg MCHC (31.6-35.5) g/dL RDW (11.5-14.5) % Plt Count (140-400) K/mcL MPV (9.4-12.4) fL Immature Gran % (0-4) % Seg Neutrophils % % Lymphocytes % % Monocytes % % Eosinophils % % Basophils % % Neutrophils # (1.6-8.9) K/mcL Lymphocytes # (0.6-4.6) K/mcL Monocytes # (0.0-1.3) K/mcL Eosinophils # (0.0-0.6) K/mcL Basophils # (0.0-0.2) K/mcL PT (9.4-12.1) Seconds INR APTT (26.0-36.0) Seconds Sodium 137 (136-145) mEq/L Potassium 3.7 (3.5-5.1) mEq/L Chloride 104 (98-107) mEq/L Carbon Dioxide 25 (23-29) mEq/L BUN 7 (6-20) mg/dL Creatinine 0.63 L (0.70-1.30) mg/dL Est GFR ( Amer) > 60 (> 60) Est GFR (Non-Af Amer) > 60 (> 60) BUN/Creatinine Ratio 11 (6-26) Glucose 235 H (70-105) mg/dL Calculated Osmolality 290 (280-300) Calcium 8.6 (8.6-10.3) mg/dL Troponin I < 0.03 (< 0.04) ng/mL B-Natriuretic Peptide (Less than 100) pg/mL Heart Score - Score History: Highly Suspicious EKG: Non Specific repolarisation Disturbance Age: Less than 45 Risk Factors: Equal/Greater than 3 risk factor or history of atherosclerotic disease Troponin: Less than normal limit HEART Score Total: 5
--- NOTE | 2018-07-10 14:12 | Emergency Department Note ---
Disposition Clinical Impression: Chest pain Qualifiers: Chest pain type: unspecified Qualified Code(s): R07.9 - Chest pain, unspecified Disposition: Still a Patient Forms: ED Satisfaction Letter General Adult HPI - General Chief complaint: ED Chest Pain Stated complaint: CP/SOB Time Seen by Provider: 07/10/18 13:56 Source: patient Limitations: no limitations Nursing Notes Reviewed: Yes Vital Signs Reviewed: Yes - History of Present Illness HPI Narrative: ED attending attestation note: I examined this patient and my medical decision-making was reviewed with the [facility] medicine resident LOBO BOWMAN agree with the documented findings, disposition and treatment plan as described except to the extent set forth below. Briefly: 43-year-old male HEART score 5. Presents with chest pain shortness of breath. Physical examination is benign afebrile with stable vital signs. Patient can EKG troponin chest x-ray and screening labs. Admission will be suggested have "decision-making. Disposition pending. Pain Scale: 8 - Related Data Previous Rx's Medication Instructions Recorded Albuterol Sulfate [Albuterol 2 puff IH Q4HR PRN #1 hfa.aer.ad 06/27/16 Inhaler] Budesonide/Formoterol 160/4.5 2 puff IH BIDR #1 hfa.aer.ad 06/27/16 [Symbicort 160/4.5] Guaifenesin [Guaifenesin ER] 1,200 mg PO BID #14 tab.er.12h 06/27/16 Levofloxacin [Levaquin] 750 mg PO DAILY #5 tablet 06/27/16 Metoprolol [Lopressor] 25 mg PO BID #60 tablet 06/27/16 metFORMIN [Glucophage] 500 mg PO BIDWM #60 tablet 06/27/16 predniSONE [PredniSONE] 10 mg PO DAILY #41 tablet 06/27/16 HYDROcodone/Acet 5/325 mg [[place] 1 tab PO Q6H PRN #20 tab 11/19/16 5-325 mg] Ondansetron [Zofran] 8 mg PO Q8HR PRN #10 tablet 11/19/16 Allergies Allergy/AdvReac Type Severity Reaction Status Date / Time No Known Allergies Allergy Verified 11/19/16 16:26 Past Medical History - Past Medical History Medical history: Reports: COPD, diabetes, hyperlipidemia, hypertension Psychiatric history: Reports: no psych history - Social History Smoking Status: Current every day smoker Smokeless Tobacco Status: No Alcohol use: Reports: rarely Drug use: Reports: none Physical Exam - General Limitations: no limitations General appearance: alert, in no apparent distress Course Vital Signs Temperature 98.4 F 07/10/18 13:57 Pulse Rate 87 07/10/18 13:57 Respiratory Rate 16 07/10/18 13:57 Blood Pressure 177/90 07/10/18 13:57 O2 Sat by Pulse Oximetry 97 07/10/18 13:57 Temperature 98.4 F 07/10/18 13:57 Pulse Rate 87 07/10/18 13:57 Respiratory Rate 16 07/10/18 13:57 Blood Pressure 177/90 07/10/18 13:57 O2 Sat by Pulse Oximetry 96 07/10/18 14:09 Oxygen Delivery Oxygen Delivery Room Air
[2018-07-10] MEDS: Nitroglycerin 0.4 MG TAB.SUBL SL PRN ×3 (14:22→14:32)
[2018-07-10 14:45] LABS: Basophils # 0.1 K/mcL (0.0-0.2); Basophils % 0.7 %; Eosinophils # 0.1 K/mcL (0.0-0.6); Eosinophils % 0.9 %; Hematocrit 43.7 % (37.5-50.1); Immature Granulocytes % 0.3 % (0-4); Lymphocytes # 1.6 K/mcL (0.6-4.6); Lymphocytes % 23.1 %; Mean Corpuscular HGB Conc 34.3 g/dL (31.6-35.5); Mean Corpuscular Volume 87.4 fL (83.0-100.0); Mean Platelet Volume 9.9 fL (9.4-12.4); Monocytes # 0.9 K/mcL (0.0-1.3); Monocytes % 12.9 %; Neutrophils # 4.3 K/mcL (1.6-8.9); Platelet Count 165 K/mcL (140-400); Red Cell Distribution Width 12.7 % (11.5-14.5); Segmented Neutrophils % 62.1 %
[2018-07-10 14:52] LABS: Activated Partial Thrombo Time 28.7 Seconds (26.0-36.0)
[2018-07-10 15:13] LABS: BUN/Creatinine Ratio 11 (6-26); Blood Urea Nitrogen 7 mg/dL (6-20); Calcium 8.6 mg/dL (8.6-10.3); Carbon Dioxide 25 mEq/L (23-29); Chloride 104 mEq/L (98-107); Glucose 235 mg/dL (70-105); Osmolality,Calculated 290 (280-300); Potassium 3.7 mEq/L (3.5-5.1); Sodium 137 mEq/L (136-145); Troponin I < 0.03 ng/mL (< 0.04); eGFR For Non-African Americans > 60 (> 60)
[2018-07-10] MEDS ORDERED: traMADol 50 MG TABLET PO PRN (16:08)
[2018-07-10] MEDS ORDERED: Acetaminophen 325 MG TABLET PO PRN (16:08)
[2018-07-10] MEDS ORDERED: Naloxone 0.4 MG/ML INJ IVP PRN (16:08)
[2018-07-10] MEDS ORDERED: *HR* Promethazine 25 MG/ML VIAL IVP PRN (16:08)
[2018-07-10] MEDS ORDERED: Mag Hydrox/Al Hydrox/Simeth 30 ML UDC PO PRN (16:08)
[2018-07-10] MEDS ORDERED: Ondansetron 4 MG/2 ML VIAL IVP PRN (16:08)
[2018-07-10] MEDS ORDERED: MOM Conc 10 ML UD.LIQ PO PRN (16:08)
[2018-07-10] MEDS ORDERED: Dextrose Gel 15 GM/37.5 ML TUBE PO PRN ×2 (16:11)
[2018-07-10] MEDS ORDERED: D5% in Water 1,000 ML IVC PRN (16:11)
[2018-07-10] MEDS ORDERED: *HR* Dextrose 50 % in Water (Syg) 50 ML SYRINGE IVP PRN (16:11)
--- NOTE | 2018-07-10 16:18 | Internal Med History&Physical ---
Date of Encounter: 07/10/18 Time of Encounter: 16:16 Internal Medicine - H&P: HPI Admitted From: Home Plans for Post Hospital Care: Home History of present illness: Mr. Ayala is a 43 year old male with past medical history of hypertension, hyperlipidemia, diabetes, COPD, current smoker, and obesity presented with acute onset of right-sided chest pain. The patient was started yesterday, was described by patient as pressure-like, no radiation, 5-6 out of 10, relieved by rest. Patient was seen at the ED today, he received 1 dose of nitroglycerin and aspirin, which relieved his chest pressure. Patient denies prior history of CAD, he never underwent any cardiac workup. He denies any fever, chills, night sweats, cough, pleuritic chest pain, or palpitation. While at the ED, patient vital signs were stable, labs were unremarkable except elevated blood glucose. EKG was showing normal sinus rhythm without acute ST-T change. Chest x-ray was unremarkable. Given his severe risk factors, patient is admitted for further evaluation. CODE STATUS discussed with patient and family, they wish full code. Past Med Surg Social Fam HX - Past Medical History Medical history: COPD, diabetes, hyperlipidemia, hypertension Psychiatric history: no psych history - Past Surgical History Additional surgical history: right hand - Social History Smoking Status: Current every day smoker Smokeless Tobacco Status: No Alcohol use: rarely Drug use: none - Family History Paternal Grandmother Hx Family Cardiac Disorders: No Hx Family Respiratory Disorders: Yes (COPD) Hx Family Cancer: No Hx Family GI Disorders: No Hx Family Endocrine Disorder: Yes (DM) Hx Family Neuromuscular Disorders: No Hx Family Neurologic Disorders: No Hx Family HEENT Disorders: No Hx Family Autoimmune Disorders: No Father Hx Family Cardiac Disorders: No Hx Family Respiratory Disorders: No Hx Family Cancer: No Hx Family GI Disorders: No Hx Family Endocrine Disorder: Yes (DM) Hx Family Neuromuscular Disorders: No Hx Family Neurologic Disorders: No Hx Family HEENT Disorders: No Hx Family Autoimmune Disorders: No Mother Hx Family Endocrine Disorder: Yes (DM) Daughter Hx Family Endocrine Disorder: Yes (DM) Internal Medicine - H&P: Meds Albuterol Sulfate [Albuterol Inhaler] 2 puff IH Q4HR PRN #1 hfa.aer.ad 06/27/16 [Rx] Budesonide/Formoterol 160/4.5 [Symbicort 160/4.5] 2 puff IH BIDR #1 hfa.aer.ad 06/27/16 [Rx] Metoprolol [Lopressor] 25 mg PO BID #60 tablet 06/27/16 [Rx] metFORMIN [Glucophage] 500 mg PO BIDWM #60 tablet 06/27/16 [Rx] Allergy/AdvReac Type Severity Reaction Status Date / Time No Known Allergies Allergy Verified 11/19/16 16:26 All Systems PM: A 10-system review of systems was performed and is negative for pertinent findings except as documented above in the HPI. Review of systems: REVIEW OF SYSTEMS: CONSTITUTIONAL: No weight loss, fever, chills, weakness or fatigue. HEENT: Eyes: No visual loss, blurred vision, double vision or yellow sclerae. Ears, Nose, Throat: No hearing loss, sneezing, congestion, runny nose or sore throat. SKIN: No rash or itching. CARDIOVASCULAR: see HPI.. RESPIRATORY: No shortness of breath, cough or sputum. GASTROINTESTINAL: No anorexia, nausea, vomiting or diarrhea. No abdominal pain or blood. GENITOURINARY: No dysuria, urgency, or frequency. NEUROLOGICAL: No headache, dizziness, syncope, paralysis, ataxia, numbness or tingling in the extremities. No change in bowel or bladder control. MUSCULOSKELETAL: No muscle, back pain, joint pain or stiffness. HEMATOLOGIC: No anemia, bleeding or bruising. LYMPHATICS: No enlarged nodes. No history of splenectomy. PSYCHIATRIC: No history of depression or anxiety. ENDOCRINOLOGIC: No reports of sweating, cold or heat intolerance. No polyuria or polydipsia. - Constitutional Vitals: Temp Pulse Resp BP Pulse Ox 98.4 F 83 18 128/67 96 07/10/18 13:57 07/10/18 16:03 07/10/18 16:03 07/10/18 16:03 07/10/18 16:03 General appearance: Present: A&O X 3 Exam: PHYSICAL EXAMINATION: GENERAL APPEARANCE: The patient is alert, oriented and in no acute distress. HEENT: Head is normocephalic. The sinuses are nontender. Pupils are equal and reactive. The nares are patent. Oropharynx clear without lesions. NECK: Supple without lymphadenopathy. HEART: Regular rate and rhythm. LUNGS: No crackles or wheezes are heard. ABDOMEN: Soft, nontender, nondistended with good bowel sounds heard. Inguinal area is normal. EXTREMITIES: Without cyanosis, clubbing or edema. NEUROLOGICAL: Gross nonfocal. SKIN: Warm and dry without any rash. Internal Med - H&P Results - Labs CBC & Chem 7: 07/10/18 14:15 07/10/18 14:15 Labs: Short CBC 07/10/18 Range/Units 14:15 WBC 6.8 (4.3-11.1) K/mcL Hgb 15.0 (12.9-16.9) g/dL Hct 43.7 (37.5-50.1) % Plt Count 165 (140-400) K/mcL Neutrophils # 4.3 (1.6-8.9) K/mcL BMP 07/10/18 14:15 Sodium 137 Potassium 3.7 Chloride 104 Carbon Dioxide 25 BUN 7 Creatinine 0.63 L Glucose 235 H Calcium 8.6 Cardiac Enzymes 07/10/18 Range/Units 14:15 Troponin I < 0.03 (< 0.04) ng/mL - Impressions ITS Impressions Chest X-Ray 07/10/18 14:05 IMPRESSION: No acute cardiopulmonary process radiographically. D/ / Yonny Segura MD / Yonny Segura MD Interpreting Provider: Yonny Segura MD - Assessment and Plan (1) Chest pain Current Visit: Yes Status: Acute Assessment and plan: 43-year-old male with CV risk factors including hypertension, hyperlipidemia, diabetes, smoker, and obesity presented with right sided chest pain. Pain relieved by aspirin and Nitrol. First set of troponin was negative, EKG has no acute ST-T change. Atypical chest pain based on history. We will continue telemetry monitoring, cycle troponin, EKG as needed. Stress test and echo in the morning. Qualifiers: Chest pain type: unspecified Qualified Code(s): R07.9 - Chest pain, unspecified (2) Diabetes mellitus Current Visit: No Status: Chronic Assessment and plan: On metformin at home, hold metformin for now, started patient on insulin sliding scale. 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 Qualifiers: Hypertension type: unspecified Qualified Code(s): I10 - Essential (primary) hypertension (4) Current smoker Current Visit: No Status: Chronic Assessment and plan: Smoking cessation discussed with patient, nicotine patch provided. (5) Obesity (BMI 30-39.9) Current Visit: No Status: Chronic Assessment and plan: Weight control discussed with patient. (6) Hyperlipidemia Current Visit: No Status: Chronic Assessment and plan: Continue home medication, will repeat lipid panel in the morning. Qualifiers: Hyperlipidemia type: unspecified Qualified Code(s): E78.5 - Hyperlipidemia, unspecified (7) COPD (chronic obstructive pulmonary disease) Current Visit: No Status: Chronic Assessment and plan: No respiratory distress currently, continue home medication. Qualifiers: COPD type: unspecified COPD Qualified Code(s): J44.9 - Chronic obstructive pulmonary disease, unspecified (8) DVT prophylaxis Current Visit: Yes Status: Acute Assessment and plan: Heparin subcutaneous. - Time Spent With Patient Total time spent is greater than 50% in coordination of care (as documented) at patient's floor/unit and/or counseling patient: Greater than 35 minutes
[2018-07-10] MEDS: *HR* Heparin 5,000 UNIT/ML VIAL SQ SCH (17:33)
[2018-07-10] MEDS: Insulin LISPRO 300 UNITS/3 ML VIAL SQ SCH (17:33)
[2018-07-10] MEDS: Nicotine 21 MG PATCH.TD24 TD SCH (18:20)
[2018-07-10] MEDS: Budesonide/Formoterol 160/4.5 1 PUFF INH IH SCH (19:58)
[2018-07-10] MEDS ORDERED: Insulin LISPRO 300 UNITS/3 ML VIAL SQ SCH (21:00)
[2018-07-11 02:26] LABS: Basophils # 0.1 K/mcL (0.0-0.2); Basophils % 0.8 %; Eosinophils # 0.1 K/mcL (0.0-0.6); Eosinophils % 1.9 %; Hematocrit 42.3 % (37.5-50.1); Hemoglobin 14.8 g/dL (12.9-16.9); Immature Granulocytes % 0.5 % (0-4); Lymphocytes # 1.5 K/mcL (0.6-4.6); Lymphocytes % 23.5 %; Mean Corpuscular Hemoglobin 30.3 pg (28.0-33.3); Mean Corpuscular Volume 86.5 fL (83.0-100.0); Mean Platelet Volume 9.8 fL (9.4-12.4); Monocytes # 0.9 K/mcL (0.0-1.3); Monocytes % 14.9 %; Neutrophils # 3.7 K/mcL (1.6-8.9); Platelet Count 151 K/mcL (140-400); Red Blood Count 4.89 M/mcL (4.19-5.50); Segmented Neutrophils % 58.4 %
[2018-07-11 02:43] LABS: Alanine Aminotransferase 22 Units/L (7-52); Albumin 3.8 g/dL (3.5-5.7); Albumin/Globulin Ratio 1.5 (1.1-2.2); Alkaline Phosphatase 78 Units/L (34-104); Aspartate Amino Transferase 18 Units/L (13-39); BUN/Creatinine Ratio 14 (6-26); Bilirubin,Total 0.4 mg/dL (0.3-1.0); Blood Urea Nitrogen 9 mg/dL (6-20); Calcium 8.7 mg/dL (8.6-10.3); Carbon Dioxide 26 mEq/L (23-29); Chloride 104 mEq/L (98-107); Chol/HDL Ratio 6.9 (0-4.9); Cholesterol 201 mg/dL (< 200); Globulin 2.6 g/dL (2.4-3.5); Glucose 248 mg/dL (70-105); HDL Cholesterol 29 mg/dL (40-59); Osmolality,Calculated 287 (280-300); Phosphorous 3.6 mg/dL (2.7-4.5); Potassium 4.2 mEq/L (3.5-5.1); Sodium 135 mEq/L (136-145); Total Protein 6.4 g/dL (6.4-8.9); Triglycerides 854 mg/dL (< 150); eGFR For Non-African Americans > 60 (> 60)
[2018-07-11] MEDS: *HR* Heparin 5,000 UNIT/ML VIAL SQ SCH (05:44)
[2018-07-11] MEDS ORDERED: Regadenoson 0.4 MG/5 ML SYRINGE IVP ONE (06:48)
[2018-07-11] MEDS: Insulin LISPRO 300 UNITS/3 ML VIAL SQ SCH ×2 (08:43→11:46)
[2018-07-11 09:01] LABS: Estimated Average Glucose 217 mg/dl; Hemoglobin A1C 9.2 %
[2018-07-11] MEDS: Nicotine 21 MG PATCH.TD24 TD SCH (09:30)
[2018-07-11] MEDS: Budesonide/Formoterol 160/4.5 1 PUFF INH IH SCH (10:26)
--- NOTE | 2018-07-11 11:09 | Internal Med Progress Note ---
Hospitalist Progress Note - Encounter Date of Encounter: 07/11/18 Time of Encounter: 11:07 - Subjective Interval History: Pt seen and examined in the room. He has no chest pain currently. - Exam Vitals: Temp Pulse Resp BP Pulse Ox 98.0 F 87 18 157/86 95 07/11/18 09:54 07/11/18 09:54 07/11/18 09:54 07/11/18 09:54 07/11/18 09:54 Exam: PHYSICAL EXAMINATION: GENERAL APPEARANCE: The patient is alert, oriented and in no acute distress. HEENT: Head is normocephalic. The sinuses are nontender. Pupils are equal and reactive. The nares are patent. Oropharynx clear without lesions. NECK: Supple without lymphadenopathy. HEART: Regular rate and rhythm. LUNGS: No crackles or wheezes are heard. ABDOMEN: Soft, nontender, nondistended with good bowel sounds heard. Inguinal area is normal. EXTREMITIES: Without cyanosis, clubbing or edema. NEUROLOGICAL: Gross nonfocal. SKIN: Warm and dry without any rash. - Assessment and Plan (1) Chest pain Current Visit: Yes Status: Acute Assessment and Plan: 07/10 43-year-old male with CV risk factors including hypertension, hyperlipidemia, diabetes, smoker, and obesity presented with right sided chest pain. Pain relieved by aspirin and Nitrol. First set of troponin was negative, EKG has no acute ST-T change. Atypical chest pain based on history. We will continue telemetry monitoring, cycle troponin, EKG as needed. Stress test and echo in the morning. 07/11 Troponin was negative. ECHO unremarkable. Pending stress test ( 2 day test). (2) Diabetes mellitus Current Visit: No Status: Chronic Assessment and Plan: On metformin at home, hold metformin for now, started patient on insulin sliding scale. A1c >9, started basal insulin 10 Unit QHS. (3) HTN (hypertension) Current Visit: No Status: Chronic Assessment and Plan: Continue home medication metoprolol. (4) Current smoker Current Visit: No Status: Chronic (5) Obesity (BMI 30-39.9) Current Visit: No Status: Chronic (6) Hyperlipidemia Current Visit: No Status: Chronic Assessment and Plan: Very high LDL level. started pt on statin diet control discussed with pt. (7) COPD (chronic obstructive pulmonary disease) Current Visit: No Status: Chronic Assessment and Plan: No respiratory distress currently, continue home medication. (8) DVT prophylaxis Current Visit: Yes Status: Acute Assessment and Plan: Heparin subcutaneous. - Time Spent with Patient Total time spent is greater than 50% in coordination of care (as documented) at patient's floor/unit and/or counseling patient: Greater than 35 minutes Plan of Care Discussed with: patient Internal Medicine: Result - Labs CBC & Chem 7: 07/11/18 02:08 07/11/18 02:08 Labs: Short CBC 07/10/18 07/11/18 Range/Units 14:15 02:08 WBC 6.8 6.3 (4.3-11.1) K/mcL Hgb 15.0 14.8 (12.9-16.9) g/dL Hct 43.7 42.3 (37.5-50.1) % Plt Count 165 151 (140-400) K/mcL Neutrophils # 4.3 3.7 (1.6-8.9) K/mcL BMP 07/10/18 07/11/18 14:15 02:08 Sodium 137 135 L Potassium 3.7 4.2 Chloride 104 104 Carbon Dioxide 25 26 BUN 7 9 Creatinine 0.63 L 0.66 L Glucose 235 H 248 H Calcium 8.6 8.7 Cardiac Enzymes 07/10/18 07/10/18 07/11/18 Range/Units 14:15 20:25 02:08 Troponin I < 0.03 < 0.03 < 0.03 (< 0.04) ng/mL 07/11/18 Range/Units 09:34 Troponin I < 0.03 (< 0.04) ng/mL Liver Function 07/11/18 Range/Units 02:08 Total Bilirubin 0.4 (0.3-1.0) mg/dL AST 18 (13-39) Units/L ALT 22 (7-52) Units/L Alkaline Phosphatase 78 (34-104) Units/L Albumin 3.8 (3.5-5.7) g/dL - ABG Interpretation ABG results: PT/INR, D-dimer PT 11.0 Seconds (9.4-12.1) 07/10/18 14:05 - Impressions Impressions Chest X-Ray 07/10/18 14:05 IMPRESSION: No acute cardiopulmonary process radiographically. D/ / Yonny Segura MD / Yonny Segura MD Interpreting Provider: Yonny Segura MD Echocardiogram 07/10/18 16:14 Impressions: LVEF 60%. Indeterminate diastolic function. Normal right ventricular structure and function. Mild tricuspid regurgitation. Mild pulmonary hypertension. Left Ventricular Wall Motion: Rest Echo Findings All wall segments showed normal motion. Findings: Study Quality * Technically adequate exam. ECG Findings * Normal sinus rhythm. Left Ventricle * LVEF 60%. * Indeterminate diastolic function. * LV chamber size and wall thickness are normal. Right Ventricle * Normal right ventricular structure and function. Left Atrium * Normal left atrial size. Right Atrium * Normal right atrial size. Aortic Valve * No aortic regurgitation. * Trileaflet aortic valve. * No aortic stenosis. Mitral Valve * No mitral regurgitation. * No mitral stenosis. * Mitral valve not well visualized. Tricuspid Valve * Tricuspid valve not well visualized. * Mild tricuspid regurgitation. * Estimated RA pressure is 8 mmHg. * Estimated RVSP is 37 mmHg. * Mild pulmonary hypertension. Pulmonic Valve * Pulmonic valve is not well visualized. * No pulmonic stenosis. * No pulmonic regurgitation. Pulmonary Artery * Pulmonary artery not well visualized. Aorta * Normally sized aortic root. Pericardium * There is no pericardial effusion present. Interatrial Septum * No evidence of PFO by color Doppler. IVC * The IVC is not dilated. * < 50% respiratory change. Consult Discharge Plan - Plan Referrals: Radha Charles, POT [employer]ER [Partnered Physician] - (Appointment has been requested. ) __ (1) Chest pain Qualifiers: Chest pain type: unspecified Qualified Code(s): R07.9 - Chest pain, unspecified (2) Diabetes mellitus Qualifiers: Diabetes mellitus type: type 2 Diabetes mellitus long term care pharmacist insulin use: without long term care pharmacist use Diabetes mellitus complication status: without complication Qualified Code(s): E11.9 - Type 2 diabetes mellitus without complications (3) HTN (hypertension) Qualifiers: Hypertension type: unspecified Qualified Code(s): I10 - Essential (primary) hypertension (6) Hyperlipidemia Qualifiers: Hyperlipidemia type: unspecified Qualified Code(s): E78.5 - Hyperlipidemia, unspecified (7) COPD (chronic obstructive pulmonary disease) Qualifiers: COPD type: unspecified COPD Qualified Code(s): J44.9 - Chronic obstructive pulmonary disease, unspecified
[2018-07-11 11:36] VITALS: BP 143/86
--- NOTE | 2018-07-11 13:01 | Discharge Summary ---
- NOTES TO OUTPATIENT PROVIDER Notes to Outpatient Provider: f/u with PCP within a week. 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 exterminator insulin use: without termite exterminator use Diabetes mellitus complication status: without complication Qualified Code(s): E11.9 - Type 2 diabetes mellitus without complications (3) HTN (hypertension) Priority: Secondary Status: Chronic Qualifiers: Hypertension type: unspecified Qualified Code(s): I10 - Essential (primary) hypertension (4) Current smoker Priority: Secondary Status: Chronic (5) Obesity (BMI 30-39.9) Priority: Secondary Status: Chronic (6) Hyperlipidemia Priority: Secondary Status: Chronic Qualifiers: Hyperlipidemia type: unspecified Qualified Code(s): E78.5 - Hyperlipidemia, unspecified (7) COPD (chronic obstructive pulmonary disease) Priority: Secondary Status: Chronic Qualifiers: COPD type: unspecified COPD Qualified Code(s): J44.9 - Chronic obstructive pulmonary disease, unspecified (8) DVT prophylaxis Priority: Primary Status: Acute Hospital course: Mr. Ayala is a 43 year old male with past medical history of hypertension, hyperlipidemia, diabetes, COPD, current smoker, and obesity presented with acute onset of right-sided chest pain. The patient was started yesterday, was described by patient as pressure-like, no radiation, 5-6 out of 10, relieved by rest. Patient was seen at the ED today, he received 1 dose of nitroglycerin and aspirin, which relieved his chest pressure. Patient denies prior history of CAD, he never underwent any cardiac workup. He denies any fever, chills, night sweats, cough, pleuritic chest pain, or palpitation. While at the ED, patient vital signs were stable, labs were unremarkable except elevated blood glucose. EKG was showing normal sinus rhythm without acute ST-T change. Chest x-ray was unremarkable. Given his severe risk factors, patient is admitted for further evaluation. Pt underwent stress test and echo which are both unremarkable. Pt currently chest pain free. Pt is discharged home today and f/u with PCP as scheduled. Discharge discussed with: patient Time spent discussing smoking cessation with patient: more than 10 minutes - Time Spent with Patient Total time spent providing and/or coordinating discharge services: Time spent: Greater than 30 minutes - Discharge Medications Prescriptions: New Atorvastatin [Lipitor] 80 mg PO HS #30 tablet Insulin DETEMIR [Levemir] 10 unit SQ HS #1 [id number] Continue Albuterol Sulfate [Albuterol Inhaler] 2 puff IH Q4HR PRN #1 hfa.aer.ad PRN Reason: Shortness Of Breath Budesonide/Formoterol 160/4.5 [Symbicort 160/4.5] 2 puff IH BIDR #1 hfa.aer.ad metFORMIN [Glucophage] 500 mg PO BIDWM #60 tablet Metoprolol [Lopressor] 25 mg PO BID #60 tablet Home Medications: Albuterol Sulfate [Albuterol Inhaler] 2 puff IH Q4HR PRN #1 hfa.aer.ad 06/27/16 [Rx] Budesonide/Formoterol 160/4.5 [Symbicort 160/4.5] 2 puff IH BIDR #1 hfa.aer.ad 06/27/16 [Rx] Metoprolol [Lopressor] 25 mg PO BID #60 tablet 06/27/16 [Rx] metFORMIN [Glucophage] 500 mg PO BIDWM #60 tablet 06/27/16 [Rx] Atorvastatin [Lipitor] 80 mg PO HS #30 tablet 07/11/18 [Rx] Insulin DETEMIR [Levemir] 10 unit SQ HS #1 [id number] 07/11/18 [Rx] Allergies/Adverse Reactions: Allergy/AdvReac Type Severity Reaction Status Date / Time No Known Allergies Allergy Verified 11/19/16 16:26 Date of admission: 07/10/18 16:00 Primary care physician: PCP NONE Anticipated date of discharge: 07/11/18 - Constitutional Vitals: Temp Pulse Resp BP Pulse Ox 98.6 F 83 17 143/86 96 07/11/18 11:34 07/11/18 11:34 07/11/18 11:34 07/11/18 11:34 07/11/18 11:34 General appearance: Present: A&O X 3 Exam: PHYSICAL EXAMINATION: GENERAL APPEARANCE: The patient is alert, oriented and in no acute distress. HEENT: Head is normocephalic. The sinuses are nontender. Pupils are equal and reactive. The nares are patent. Oropharynx clear without lesions. NECK: Supple without lymphadenopathy. HEART: Regular rate and rhythm. LUNGS: No crackles or wheezes are heard. ABDOMEN: Soft, nontender, nondistended with good bowel sounds heard. Inguinal area is normal. EXTREMITIES: Without cyanosis, clubbing or edema. NEUROLOGICAL: Gross nonfocal. SKIN: Warm and dry without any rash. - Patient Status Disposition: Home, Self-Care Condition: Good Functional capacity at discharge: independent ambulation Overall status at discharge: patient is progressing back to baseline - Discharge Instructions Follow Up With: Radha Charles CNP [Partnered Physician] - (Appointment has been requested. ) - Diet and Activity Activity: increase activity as tolerated Diet: diabetic diet, low fat, low cholesterol, low salt diet
--- NOTE | 2018-07-11 16:18 | Electrocardiograph Report ---
[address] [address] Test Date: 2018-07-10 Pat Name: Eze Ayala Department: EXAM15 Room: 3B38 Gender: M Configuration Technician: : 1975 Requested By: Sancho Huntley Order Number: [id number] Reading MD: Daren Oleary Measurements Intervals [place] Rate: 87 P: 61 UT: 157 QRS: 42 QRSD: 87 T: 89 QT: 335 QTc: 403 Interpretive Statements Sinus rhythm Electronically Signed On 07-11-2018 16:16:35 EDT by Daren Oleary
[2018-07-11] MEDS ORDERED: Insulin DETEMIR 100 UNIT/ML X5UNITS SQ SCH (21:00)
== END 2018-07-11 13:54 | disposition home or self-care (01) ==
LOC: 3BNU 13:39 → EMEROOARM 13:39 → 3BNU 16:45
PROVIDERS: ADMIT Internal Medicine Nephrology; ATTEND Internal Medicine Nephrology